=== PATIENT | male | born 1945 | race Caucasian/White ===

== ENCOUNTER → 2024-01-03 07:01 | Outpatient (REF) | payer MEDICARE, OTHER, SELFPAY ==
[2024-01-03 07:36] LABS: % Basophils 0.7 % (0-2); % Eosinophils 4.4 % (0-6); % Immature Granulocytes 0.3 % (0-0.5); % Lymphocytes 49.3 % (20.5-51.1); % Monocytes 9.1 % (1.7-9.3); % Neutrophils 36.2 % (42.2-75.2); Absolute Basophils 0.1 10^3/uL (0-0.2); Absolute Eosinophils 0.3 10^3/uL (0-0.7); Absolute Lymphocytes 3.4 10^3/uL (1.2-3.4); Absolute Monocytes 0.6 10^3/uL (0.1-0.6); Absolute Neutrophils 2.5 10^3/uL (1.4-6.5); Hematocrit 42.2 % (39.0-52.0); Hemoglobin 14.1 g/dL (13.0-18.0); Mean Corp Hgb Conc. 33.4 g/dL (33.0-37.0); Mean Corpuscular Hgb 31.9 pg (27.0-31.0); Mean Corpuscular Volume 95.5 fL (80.0-94.0); Mean Platelet Volume 9.8 fL (7.4-10.4); Nucleated Red Blood Cells % 0 % (-); Platelet Count 199 10^3/uL (130-400); Red Blood Cell Count 4.42 10^6/uL (4.70-6.10); Red Cell Dist. Width 12.7 % (11.5-14.5); White Blood Cell Count 6.9 10^3/uL (4.8-10.8)
[2024-01-03 07:42] LABS: Urine Albumin Negative (Neg - Trace); Urine Bilirubin Negative (Negative); Urine Character Clear (Clear); Urine Color Yellow; Urine Glucose Negative (Negative); Urine Ketone Negative (Negative); Urine Leukocyte Negative (Negative); Urine Nitrite Negative (Negative); Urine Occult Blood Negative (Negative); Urine Specific Gravity 1.025 (<1.030); Urine Urobilinogen Negative (Neg - 1+)
[2024-01-03 07:58] LABS: ALT (SGPT) 26 U/L (0-50); AST (SGOT) 29 U/L (17-59); Albumin 4.3 g/dl (3.5-5.0); Alkaline Phosphatase 84 U/L (38-126); Blood Urea Nitrogen 17 mg/dl (9-20); Calcium 9.3 mg/dl (8.4-10.2); Carbon Dioxide 29 mmol/L (22-30); Chloride 104 mmol/L (98-107); Glucose 103 mg/dl (70-99); HDL Cholesterol 61 mg/dl; LDL Cholesterol, Calculated 103 mg/dl; Sodium 137 mmol/L (135-145); Total Bilirubin 0.5 mg/dl (0.2-1.3); Total Cholesterol 180 mg/dl (50-199); Triglyceride 82 mg/dl (10-149); Very Low Density Lipoprotein 16 mg/dl (0-30); eGFR > 60.00
== END ==
LOC: REG 07:01
PROVIDERS: ATTENDING PHYSICIAN Internal Medicine
DX: N40.1 Benign prostatic hyperplasia with lower urinary tract symptoms (principal); N40.0 Benign prostatic hyperplasia without lower urinary tract symptoms; R97.20 Elevated prostate specific antigen [PSA]; E78.5 Hyperlipidemia, unspecified
CPT/HCPCS: 36415; 80053; 80061; 81003; 84153; 84154; 85025

== ENCOUNTER 2024-04-10 15:16 | Emergency (ER) | payer MEDICARE, OTHER, SELFPAY ==
[2024-04-10 15:24] VITALS: BP 131/90
--- NOTE | 2024-04-10 15:44 | ED.GENMED ---
History of Present Illness
General
Chief Complaint: Male Genito-Urinary Symptoms
Source: patient
Exam Limitations: none
Time Seen by Provider: 04/10/24 15:35
Nursing documentation reviewed up to this point in time: agreed with
History of Present Illness
History of Present Illness:
78-year-old male with history of BPH, HLD states he last urinated at 6 AM today, feels bladder is full and is unable to urinate. He did experience constipation in the past 24 hours but did finally have a good bowel movement this morning. He denies
fever or chills. Denies burning with urination.
Past History
Past History
ED Past Medical History: Hypercholesterolemia and Other (BPH)
ED Past Surgical History: Orthopedic and Other (cataract)
Social History
Tobacco: Non-smoker
Alcohol: Occasional
Personal:
Living: with family
Employment: Retired
Review of Systems
Review of Systems
Allergies reviewed?: Yes
All Other Systems: ROS reviewed and negative except as documented in HPI and ROS
Constitutional: Denies fever or chills
ABD/GI: Reports abdominal pain (mild suprapubic); Denies nausea, vomiting or diarrhea
: Reports difficulty voiding; Denies dysuria or flank pain
Musculoskeletal: Reports no symptoms
Skin: Reports no symptoms
Neurological: Reports no symptoms
Phy Exam
Physical Exam
Physical Exam:
GENERAL: No acute distress. A&Ox3.
CONSTITUTIONAL: Afebrile.
EYES: clear, conjunctivae normal
ENMT: moist mucus membranes, Pharynx nl
RESPIRATORY: Regular respirations, nonlabored, lungs clear.
CARDIOVASCULAR: Regular rate and rhythm, no murmurs, no rubs.
GI: Soft, mild suprapubic tenderness, normal BS
MUSCULOSKELETAL: Moves with ease. Well perfused.
SKIN: Warm, dry, pink
PSYCH: Normal mood and affect. Well kept, interactive and appropriate
NEUROLOGIC: Awake, alert and oriented. No focal neurological deficits
Course
Orders/Labs/Results
Orders:
Orders
04/10/24 15:43
Yung Placement- Treatment ONCE
Reason for insertion: Acute Retention
04/10/24 15:56
Urinalysis Reflex To Culture Urgent
Date Specimen was Collected: 04/10/24
Time Specimen was Collected: 15:55
Vital Signs
Initial and Last Documented VS:
Initial Vital Signs
Temp Pulse Resp BP Pulse Ox
99.0 F 94 16 131/90 96
04/10/24 15:24 04/10/24 15:24 04/10/24 15:24 04/10/24 15:24 04/10/24 15:24
Last Documented Vital Signs
Temp Pulse Resp BP Pulse Ox
99.0 F 64 18 141/79 97
04/10/24 15:24 04/10/24 17:31 04/10/24 17:31 04/10/24 17:31 04/10/24 17:31
MDM/Problems Addressed
Differential Diagnosis Includes:
Acute urine retention, UTI
MDM/Problems Addressed:
78-year-old male with history of BPH, HLD states he last urinated at 6 AM today, feels bladder is full and is unable to urinate. He did experience constipation in the past 24 hours but did finally have a good bowel movement this morning. He denies
fever or chills. Denies burning with urination.
Bladder scan: >600 ml
Yung catheter inserted, clear yellow urine
U/A neg for infection.
Plan: Send home with catheter and leg bag
Urology f/u
*Critical Care Note
Total Time (30-74mins, 75-104mins- exclusive of procedures): Not Applicable
ED Attending Note
-
Portions of this chart may have been created with voice recognition software.� Occasional wrong word or��sound alike� substitutions may have occurred due to the inherent limitations of voice recognition software.
Discharge Plan
Departure
Patient Disposition: Home (Routine Discharge)
Date of Disposition: 04/10/24
Time of Disposition: 16:30
Patient with high blood pressure during this ER visit?: No
Condition: Good
Discharge Problem:
Acute retention of urine
Instructions: How to Care for Your Yung Catheter, Male, Urinary Retention (DC)
Referrals:
Victor Manuel Yousif MD [Active] - Call in 1-3 days for appt
Activity Restrictions/Additional Instructions:
As we discussed, call the urology office tomorrow and make next available appointment.
Interventions
Interventions:
*Risk Screen - Suicide Last Done: 04/10/24 17:31
*General Assessment Last Done: 04/10/24 17:31
*Neglect/Abuse Screening Last Done: 04/10/24 17:31
*Nursing Disposition Last Done: 04/10/24 17:31
ED-Male Genitourinary Assessment Last Done: 04/10/24 15:43
Discharge Date and Time
Discharge Date/Time: 04/10/24 17:32
Print Language: BULGARIAN
[2024-04-10 16:23] LABS: Urine Albumin Negative (Neg - Trace); Urine Bilirubin Negative (Negative); Urine Character Clear (Clear); Urine Color Yellow; Urine Glucose Negative (Negative); Urine Ketone Negative (Negative); Urine Leukocyte Negative (Negative); Urine Nitrite Negative (Negative); Urine Occult Blood Negative (Negative); Urine Urobilinogen Negative (Neg - 1+)
[2024-04-10 17:31] VITALS: BP 141/79
== END 2024-04-10 17:32 | disposition home or self-care (01) ==
LOC: EMR 15:16
PROVIDERS: Registered Nurse; EMERGENCY PHYSICIAN Emergency Medicine; FAMILY PHYSICIAN Internal Medicine
DX: R10.30 Lower abdominal pain, unspecified (principal); N40.1 Benign prostatic hyperplasia with lower urinary tract symptoms; R33.8 Other retention of urine; K59.00 Constipation, unspecified; E78.00 Pure hypercholesterolemia, unspecified
CPT/HCPCS: 99284; 51702; 81003

== ENCOUNTER → 2024-07-10 08:11 | Outpatient (REF) | payer MEDICARE, OTHER, SELFPAY | LOC: REG 08:11 | PROVIDERS: ATTENDING PHYSICIAN Internal Medicine | DX: R97.20 Elevated prostate specific antigen [PSA] (principal) | CPT/HCPCS: 36415; 84153 ==

== ENCOUNTER → 2025-01-04 07:28 | Outpatient (REF) | payer MEDICARE, OTHER, SELFPAY ==
[2025-01-04 08:23] LABS: % Basophils 0.5 % (0-2); % Eosinophils 3.3 % (0-6); % Immature Granulocytes 0.3 % (0-0.5); % Lymphocytes 49.8 % (20.5-51.1); % Monocytes 9.1 % (1.7-9.3); Absolute Eosinophils 0.2 10^3/uL (0-0.7); Absolute Lymphocytes 3.2 10^3/uL (1.2-3.4); Absolute Monocytes 0.6 10^3/uL (0.1-0.6); Absolute Neutrophils 2.4 10^3/uL (1.4-6.5); Hematocrit 39.8 % (39.0-52.0); Hemoglobin 13.2 g/dL (13.0-18.0); Mean Corp Hgb Conc. 33.2 g/dL (33.0-37.0); Mean Corpuscular Hgb 32.4 pg (27.0-31.0); Mean Corpuscular Volume 97.5 fL (80.0-94.0); Mean Platelet Volume 9.9 fL (7.4-10.4); Nucleated Red Blood Cells % 0 % (-); Platelet Count 198 10^3/uL (130-400); Red Blood Cell Count 4.08 10^6/uL (4.70-6.10); Red Cell Dist. Width 13.7 % (11.5-14.5); White Blood Cell Count 6.4 10^3/uL (4.8-10.8)
[2025-01-04 08:59] LABS: ALT (SGPT) 18 U/L (0-50); AST (SGOT) 21 U/L (17-59); Albumin 3.9 g/dl (3.5-5.0); Alkaline Phosphatase 71 U/L (38-126); Blood Urea Nitrogen 15 mg/dl (9-20); Calcium 9.3 mg/dl (8.4-10.2); Carbon Dioxide 28 mmol/L (22-30); Chloride 106 mmol/L (98-107); Glucose 95 mg/dl (70-99); HDL Cholesterol 59 mg/dl; LDL Cholesterol, Calculated 93 mg/dl; Potassium 4.2 mmol/L (3.5-5.1); Sodium 141 mmol/L (135-145); Total Bilirubin 0.7 mg/dl (0.2-1.3); Total Cholesterol 165 mg/dl (50-199); Total Protein 6.5 g/dl (6.3-8.2); Triglyceride 69 mg/dl (10-149); Very Low Density Lipoprotein 13 mg/dl (0-30); eGFR > 60.00
[2025-01-04 09:15] LABS: Urine Albumin Negative (Neg - Trace); Urine Bilirubin Negative (Negative); Urine Character Clear (Clear); Urine Color Yellow; Urine Glucose Negative (Negative); Urine Ketone Negative (Negative); Urine Leukocyte Negative (Negative); Urine Nitrite Negative (Negative); Urine Occult Blood 1+ (Negative); Urine Specific Gravity 1.015 (<1.030); Urine Urobilinogen Negative (Neg - 1+)
[2025-01-04 09:25] LABS: PSA, Total - Diagnostic 6.33 ng/ml (0.0-4.0)
[2025-01-04 11:48] LABS: Urine Red Blood Cell 0-2 /HPF (0-2); Urine Squamous Cell None seen /LPF (Few); Urine White Cell 0-2 /HPF (0-5)
== END ==
LOC: REG 07:28
PROVIDERS: ATTENDING PHYSICIAN Internal Medicine
DX: N40.0 Benign prostatic hyperplasia without lower urinary tract symptoms (principal); R97.20 Elevated prostate specific antigen [PSA]; E78.00 Pure hypercholesterolemia, unspecified
CPT/HCPCS: 36415; 80053; 80061; 81003; 81015; 84153; 85025

== ENCOUNTER → 2025-07-01 06:51 | Outpatient (REF) | payer MEDICARE, OTHER, SELFPAY ==
[2025-07-01 09:48] LABS: PSA, Total - Diagnostic 5.67 ng/ml (0.0-4.0)
== END ==
LOC: REG 06:51
PROVIDERS: ATTENDING PHYSICIAN Internal Medicine
DX: N40.0 Benign prostatic hyperplasia without lower urinary tract symptoms (principal); R97.20 Elevated prostate specific antigen [PSA]
CPT/HCPCS: 36415; 84153